=== PATIENT | male | born 1960 | race Caucasian/White ===

== ENCOUNTER 2020-03-24 01:59 | Outpatient (CLI) | payer BC, SELFPAY ==
[2020-03-24 08:19] LABS: Hemoglobin A1C 5.6 % (3.8-5.6)
[2020-03-24 08:48] LABS: CREATININE 0.87 mg/dL (0.70-1.30); Calculated LDL 60 mg/dL (<100); Cholesterol 123 mg/dL (<200); HDL Cholesterol 33 mg/dL (40-60); Potassium 4.5 mmol/L (3.5-5.1); Triglyceride 150 mg/dL (<150)
== END 2020-03-24 02:19 ==
PROVIDERS: PCP Nurse Practitioner; Visit Provider Nurse Practitioner
DX: I10 Essential (primary) hypertension (principal); E78.5 Hyperlipidemia, unspecified; Z13.1 Encounter for screening for diabetes mellitus
CPT/HCPCS: 36415; 80061; 82565; 83036; 84132

== ENCOUNTER 2020-12-07 01:54 | Outpatient (CLI) | payer BC, SELFPAY ==
[2020-12-08 16:17] LABS: COVID-19 RT-PCR UVMMC Result Negative (Negative)
== END 2020-12-07 01:55 | disposition home or self-care (01) ==
LOC: LBO 01:54
PROVIDERS: PCP Nurse Practitioner; Visit Provider Nurse Practitioner
DX: Z20.822 Contact with and (suspected) exposure to COVID-19 (principal)
CPT/HCPCS: U0003

== ENCOUNTER 2021-04-05 04:16 | Outpatient (CLI) | payer BC, SELFPAY ==
[2021-04-05 17:24] LABS: CREATININE 0.9 mg/dL (0.70-1.30); Calculated LDL 59 mg/dL (<100); Cholesterol 120 mg/dL (<200); HDL Cholesterol 36 mg/dL (40-60); Potassium 4.6 mmol/L (3.5-5.1); Triglyceride 128 mg/dL (<150)
== END 2021-04-05 04:17 | disposition home or self-care (01) ==
LOC: LBO 04:16
PROVIDERS: PCP Nurse Practitioner; Visit Provider Nurse Practitioner
DX: I10 Essential (primary) hypertension (principal); E78.2 Mixed hyperlipidemia
CPT/HCPCS: 36415; 80061; 82565; 84132

== ENCOUNTER 2022-04-04 08:40 | Outpatient (CLI) | payer BC, SELFPAY ==
[2022-04-04 12:36] LABS: Hemoglobin A1C 5.5 % (<5.7)
[2022-04-04 12:37] LABS: Anion Gap 6.4 mmol/L (3-11); BUN 23 mg/dL (7-18); CO2 28.6 mmol/L (21.0-32.0); CREATININE 0.9 mg/dL (0.70-1.30); Calcium 9.1 mg/dL (8.5-10.1); Calculated LDL 44 mg/dL (<100); Chloride 105 mmol/L (98-107); Cholesterol 117 mg/dL (<200); Glucose 95 mg/dL (74-106); HDL Cholesterol 35 mg/dL (40-60); Potassium 4.9 mmol/L (3.5-5.1); Sodium 140 mmol/L (136-145); Triglyceride 193 mg/dL (<150)
== END 2022-04-04 08:41 | disposition home or self-care (01) ==
LOC: LOS 08:40
PROVIDERS: PCP Nurse Practitioner; Visit Provider Nurse Practitioner
DX: E78.5 Hyperlipidemia, unspecified (principal); I10 Essential (primary) hypertension; Z13.1 Encounter for screening for diabetes mellitus; Z95.1 Presence of aortocoronary bypass graft
CPT/HCPCS: 36415; 80048; 80061; 83036

== ENCOUNTER 2024-05-07 14:28 | Outpatient (CLI) | payer BC, SELFPAY ==
[2024-05-07 14:42] LABS: Hemoglobin A1C 5.5 % (<5.7)
[2024-05-07 15:05] LABS: Anion Gap 9.4 mmol/L (3-11); BUN 17 mg/dL (7-18); CO2 25.6 mmol/L (21.0-32.0); Calcium 8.7 mg/dL (8.5-10.1); Calculated LDL 16 mg/dL (<100); Chloride 106 mmol/L (98-107); Cholesterol 126 mg/dL (<200); Estimated GFR 85.63 (mL/min/1.73m2); Glucose 107 mg/dL (74-106); HDL Cholesterol 35 mg/dL (40-60); Sodium 141 mmol/L (136-145); TSH (W/Ref FT4) 1.89 uIU/mL (0.36-3.74); Triglyceride 376 mg/dL (<150)
== END 2024-05-07 14:29 | disposition home or self-care (01) ==
LOC: LBO 14:31
PROVIDERS: PCP Nurse Practitioner Family; Visit Provider Nurse Practitioner Family
DX: Z00.00 Encounter for general adult medical examination without abnormal findings (principal); I10 Essential (primary) hypertension; I25.810 Atherosclerosis of coronary artery bypass graft(s) without angina pectoris; E78.2 Mixed hyperlipidemia; M1A.9XX0 Chronic gout, unspecified, without tophus (tophi); M32.9 Systemic lupus erythematosus, unspecified; N52.9 Male erectile dysfunction, unspecified
CPT/HCPCS: 36415; 80048; 80061; 83036; 84443

== ENCOUNTER 2025-05-03 10:13 | Outpatient (CLI) | payer BC, SELFPAY ==
[2025-05-03 14:21] LABS: ALT 41 U/L (16-63); AST 28 U/L (15-37); Albumin 3.9 g/dL (3.4-5.0); Alkaline Phosphatase 108 U/L (46-116); Anion Gap 7.3 mmol/L (3-11); BUN 24 mg/dL (7-18); Bilirubin, Total 0.8 mg/dL (0.2-1.0); CO2 27.7 mmol/L (21.0-32.0); Calcium 9.5 mg/dL (8.5-10.1); Calculated LDL 58 mg/dL (<100); Chloride 106 mmol/L (98-107); Cholesterol 144 mg/dL (<200); Estimated GFR 85.10 (mL/min/1.73m2); Glucose 102 mg/dL (74-106); HDL Cholesterol 33 mg/dL (>or=40); Potassium 4.8 mmol/L (3.5-5.1); Sodium 141 mmol/L (136-145); Total Protein 7.6 g/dL (6.4-8.2); Triglyceride 269 mg/dL (<150)
[2025-05-03 14:33] LABS: Uric Acid 6.6 mg/dL (3.5-7.2)
[2025-05-03 20:21] LABS: PSA, Screening 0.9 ng/mL (<=4.5)
== END 2025-05-03 10:14 | disposition home or self-care (01) ==
LOC: LOS 10:14
PROVIDERS: PCP Nurse Practitioner Family; Referring Provider Nurse Practitioner Family; Visit Provider Nurse Practitioner Family
DX: Z00.00 Encounter for general adult medical examination without abnormal findings (principal); I10 Essential (primary) hypertension; I25.810 Atherosclerosis of coronary artery bypass graft(s) without angina pectoris; E78.2 Mixed hyperlipidemia; N52.9 Male erectile dysfunction, unspecified; M32.9 Systemic lupus erythematosus, unspecified; M1A.9XX0 Chronic gout, unspecified, without tophus (tophi); Z12.5 Encounter for screening for malignant neoplasm of prostate
CPT/HCPCS: 36415; 80053; 80061; 84153; 84550